=== PATIENT | male | born 1995 | race Caucasian/White ===

== ENCOUNTER 2017-04-12 15:21 | Emergency (ER) | payer OTHER ==
[~2017-04-12] VITALS: Wt 117.0 kg
[~2017-04-12 15:21] MED LIST: ADDERALL XR30 MG PO; MOTRIN800 MG PO
[2017-04-12] MEDS ORDERED: ULTRAM50 MG PO (15:41)
[2017-04-12] MEDS ORDERED: CLINDAMYCIN HC300 MG PO (15:41)
== END 2017-04-12 15:40 | disposition home or self-care (01) ==
LOC: ED 15:21
DX: K08.89 Other specified disorders of teeth and supporting structures (principal); F17.200 Nicotine dependence, unspecified, uncomplicated; Z88.0 Allergy status to penicillin